=== PATIENT | male | born 1970 | race Two or more races ===

== ENCOUNTER 2021-11-23 21:07 | Emergency (ER) | payer OTHER ==
[~2021-11-23] VITALS: Ht 167.6 cm; Wt 74.8 kg
[2021-11-23] MEDS ORDERED: SIMVASTATIN10 MG PO (21:41)
[2021-11-23] MEDS ORDERED: OMEPRAZOLE40 MG PO (21:42)
[2021-11-24] MEDS ORDERED: ZITHROMAX500 MG PO (01:36)
[2021-11-24] MEDS ORDERED: PROAIR RESPICL90 MCG IH (01:36)
[2021-11-24] MEDS ORDERED: TUSNEL LIQUID178 ML PO (01:36)
[2021-11-24] MEDS ORDERED: DOLOGEN CAPLET1 EACH PO (01:36)
[2021-11-24] MEDS ORDERED: OSEL75CA PO (01:42)
== END 2021-11-24 01:42 | disposition home or self-care (01) ==
LOC: ER 21:07
DX: U07.1 COVID-19 (principal); J10.1 Influenza due to other identified influenza virus with other respiratory manifestations

== ENCOUNTER 2023-01-06 18:50 | Emergency (ER) | payer OTHER ==
[~2023-01-06] VITALS: Ht 160 cm; Wt 71.7 kg
[~2023-01-06 18:50] MED LIST: DOLOGEN CAPLET1 EACH PO; OMEPRAZOLE40 MG PO; OSEL75CA PO; PROAIR RESPICL90 MCG IH; SIMVASTATIN10 MG PO; TUSNEL LIQUID178 ML PO; ZITHROMAX500 MG PO
== END 2023-01-06 21:42 | disposition home or self-care (01) ==
LOC: ER 18:50
DX: J03.80 Acute tonsillitis due to other specified organisms (principal)
CPT/HCPCS: 96372; 99284; J0696; J1885